=== PATIENT | male | born 1960 | race Caucasian/White ===

== ENCOUNTER 2019-06-23 19:36 | Emergency (ER) | payer SELFPAY ==
[~2019-06-23] VITALS: Ht 172.7 cm; Wt 96.6 kg
[~2019-06-23 19:36] MED LIST: AMOXIL500 MG PO; ENALAPRIL10 M1 PO; FLA500 PO; MICROZIDE12.5 MG PO
[2019-06-23 19:51] VITALS: Ht 172.7 cm; Wt 96.6 kg
[2019-06-23 22:39] VITALS: BP 165/79
== END 2019-06-23 22:40 | disposition home or self-care (01) ==
LOC: ED 19:36
DX: S61.217A Laceration without foreign body of left little finger without damage to nail, initial encounter (principal); I10 Essential (primary) hypertension; W26.8XXA Contact with other sharp object(s), not elsewhere classified, initial encounter; Y93.89 Activity, other specified; Y92.89 Other specified places as the place of occurrence of the external cause; Y99.8 Other external cause status
CPT/HCPCS: 90715; J2001

== ENCOUNTER 2019-06-25 10:34 | Emergency (ER) | payer MEDICAID ==
[~2019-06-25] VITALS: Ht 182.9 cm; Wt 94.3 kg
[2019-06-25 10:38] VITALS: BP 140/79; Ht 182.9 cm; Wt 94.3 kg
== END 2019-06-25 11:55 | disposition home or self-care (01) ==
LOC: ED 10:34
DX: S61.411D Laceration without foreign body of right hand, subsequent encounter (principal); I10 Essential (primary) hypertension; X58.XXXD Exposure to other specified factors, subsequent encounter

== ENCOUNTER 2019-07-01 16:13 | Emergency (ER) | payer MEDICAID ==
[~2019-07-01] VITALS: Ht 182.9 cm; Wt 94.3 kg
[2019-07-01 16:28] VITALS: Ht 182.9 cm; Wt 94.3 kg
[2019-07-01 17:11] VITALS: BP 121/71
== END 2019-07-01 17:11 | disposition home or self-care (01) ==
LOC: ED 16:13
DX: S61.412D Laceration without foreign body of left hand, subsequent encounter (principal); S61.217D Laceration without foreign body of left little finger without damage to nail, subsequent encounter; I10 Essential (primary) hypertension; Z98.890 Other specified postprocedural states; W11.XXXD Fall on and from ladder, subsequent encounter

== ENCOUNTER 2019-08-23 14:14 | Emergency (ER) | payer MEDICAID, SELFPAY ==
[~2019-08-23] VITALS: Ht 185.4 cm; Wt 99.8 kg
[2019-08-23 14:19] VITALS: Ht 185.4 cm; Wt 99.8 kg
[2019-08-23 15:08] VITALS: BP 154/78
== END 2019-08-23 15:08 | disposition home or self-care (01) ==
LOC: ED 14:14
DX: J06.9 Acute upper respiratory infection, unspecified (principal); I10 Essential (primary) hypertension; Z98.890 Other specified postprocedural states

== ENCOUNTER 2019-08-24 11:38 | Emergency (ER) | payer MEDICAID, SELFPAY ==
[~2019-08-24] VITALS: Ht 167.6 cm; Wt 90.3 kg
[2019-08-24 11:44] VITALS: Ht 167.6 cm; Wt 90.3 kg
[2019-08-24 13:05] LABS: CALCIUM 9.8 mg/dL (8.5-10.1); CARBON DIOXIDE 26.2 mmol/L (21-32); CHLORIDE SERUM 97 mmol/L (98-107); CREATININE SERUM 1.1 mg/dL (0.7-1.3); GFR1 > 60 mL/min; GLUCOSE SERUM 115 mg/dL (74-106); POTASSIUM SERUM 4.3 mmol/L (3.5-5.1); SODIUM SERUM 135 mmol/L (136-145)
[2019-08-24 13:10] LABS: ALBUMIN 4.7 g/dL (3.4-5.0); ALKALINE PHOSPHATASE 89 U/L (46-116); ALT/SGPT 32 U/L (16-63); AST/SGOT 27 U/L (15-37); BILIRUBIN TOTAL 3.74 mg/dL (0.20-1.00); LIPASE 83 IU/L (73-393); TOTAL PROTEIN, SERUM 8.7 g/dL (6.4-8.2)
[2019-08-24 13:30] LABS: BASOPHIL % 0.2 % (0-2); PLATELET COUNT 236 x10^3mcL (130-400); RED CELL DISTRIBUTION WIDTH 13.4 % (11.5-14.5)
[2019-08-24 14:02] LABS: microscopic required? YES; urine erythrocyte TRACE (NEGATIVE)
[2019-08-24 15:20] VITALS: BP 143/89
== END 2019-08-24 15:20 | disposition home or self-care (01) ==
LOC: ED 11:38
PROVIDERS: Emergency Medicine
DX: R10.12 Left upper quadrant pain (principal); R10.31 Right lower quadrant pain; R50.9 Fever, unspecified; I10 Essential (primary) hypertension; Z20.828 Contact with and (suspected) exposure to other viral communicable diseases; Z88.6 Allergy status to analgesic agent
CPT/HCPCS: 36415; Q0092; Q0162

== ENCOUNTER 2019-12-11 05:28 | Emergency (ER) | payer OTHER ==
[~2019-12-11] VITALS: Ht 182.9 cm; Wt 97.5 kg
[2019-12-11 05:35] VITALS: Ht 182.9 cm; Wt 97.5 kg
[2019-12-11 07:25] VITALS: BP 143/67
== END 2019-12-11 07:15 | disposition home or self-care (01) ==
LOC: ED 05:28
PROVIDERS: Emergency Medicine
DX: R10.9 Unspecified abdominal pain (principal); I10 Essential (primary) hypertension; Z98.890 Other specified postprocedural states